=== PATIENT | female | born 1985 | race Caucasian/White ===

== ENCOUNTER 2017-12-15 13:29 | Observation (INO) ==
[2017-12-15 13:57] LABS: Basophils # 0.1 K/mm3 (0-0.2); Basophils % 0.3 % (0.1-2.0); Eosinophils # 0.2 K/mm3 (0.0-0.4); Eosinophils % 0.7 % (0.1-12.0); Hematocrit 39.4 % (37.0-47.0); Hemoglobin 12.6 g/dL (12.2-16.2); Lymphocytes % 4.4 K/mm3 (10-50); Mean Corpuscular HGB Conc 31.9 g/dL (31.8-35.4); Mean Corpuscular Hemoglobin 30.1 pg (27.0-31.2); Mean Corpuscular Volume 94.4 fl (81-99); Mean Platelet Volume 7.6 fl (7.4-10.4); Monocytes % 4.4 % (1.7-9.3); Neutrophils # 21.2 K/mm3 (1.8-7.8); Neutrophils % 90.3 % (37.0-80.0); Platelet Count 309 K/mm3 (142-424); Red Blood Count 4.18 M/mm3 (4.20-5.40); Red Cell Distribution Width 14.8 % (11.5-17.5); White Blood Count 23.4 K/mm3 (4.8-10.8)
--- NOTE | 2017-12-15 13:59 | Emergency Department Note ---
ED Disposition Clinical Impression: Hyperkalemia, Hypoglycemia Acute renal failure Qualifiers: Acute renal failure type: unspecified Qualified Code(s): N17.9 - Acute kidney failure, unspecified Disposition: Still a Patient Condition on Discharge: Fair - Critical Care Critical Care Time: No Attestation: On , the high probability of a clinically significant, sudden or life threatening deterioration of the following system(s) required my full and direct attention, intervention and personal management. The time I documented below is in addition to time spent performing reported procedures but includes the following listed in this critical care notation. Medical Decision Making - [place] Inquiry Pt receiving controlled substance: No Vital Signs: 12/15/17 13:31 12/15/17 14:21 12/15/17 15:07 Temperature 97.8 F Temperature Source Oral Pulse Rate Pulse Rate [Right Brachial] 108 H 118 H 102 H Respiratory Rate 18 20 16 Blood Pressure Blood Pressure [Right Arm] 81/50 98/65 103/67 Blood Pressure Mean [Right Arm] 60 76 79 Blood Pressure Source Blood Pressure Source [Right Arm] Automatic Cuff Automatic Cuff Blood Pressure Position Blood Pressure Position [Right Arm] Supine Sitting 02 Sat by Pulse Oximetry 97 97 97 Oxygen Delivery Method Room Air Room Air 12/15/17 15:52 12/15/17 17:05 12/15/17 17:52 Temperature 98.5 F Temperature Source Oral Pulse Rate Pulse Rate [Right Brachial] 61 114 H 112 H Respiratory Rate 20 22 20 Blood Pressure Blood Pressure [Right Arm] 105/58 118/77 121/81 Blood Pressure Mean [Right Arm] 73 90 94 Blood Pressure Source Blood Pressure Source [Right Arm] Automatic Cuff Automatic Cuff Automatic Cuff Blood Pressure Position Blood Pressure Position [Right Arm] Sitting Sitting Sitting 02 Sat by Pulse Oximetry 100 98 97 Oxygen Delivery Method Room Air Room Air 12/15/17 18:43 Temperature 98.9 F Temperature Source Oral Pulse Rate 72 Pulse Rate [Right Brachial] Respiratory Rate 16 Blood Pressure 114/70 Blood Pressure [Right Arm] Blood Pressure Mean [Right Arm] Blood Pressure Source Automatic Cuff Blood Pressure Source [Right Arm] Blood Pressure Position Sitting Blood Pressure Position [Right Arm] 02 Sat by Pulse Oximetry Oxygen Delivery Method Room Air - Lab Data Lab Results 12/15/17 13:24: POC Glucose 116 H 12/15/17 13:35: WBC 23.4 H*, RBC 4.18 L, Hgb 12.6, Hct 39.4, MCV 94.4, MCH 30.1 , MCHC 31.9, RDW 14.8, Plt Count 309, MPV 7.6, Neut % (Auto) 90.3 H, Lymph % ( Auto) 4.4 L, [place] % (Auto) 4.4, Eos % (Auto) 0.7, Baso % (Auto) 0.3, Neut # ( Auto) 21.2 H, Lymph # (Auto) 1.0, [place] # (Auto) 1.0, Eos # (Auto) 0.2, Baso # ( Auto) 0.1, Total Counted 100, Neutrophils % (Manual) 88 H, Lymphocytes % (Manual ) 8 L, Monocytes % (Manual) 4, Platelet Estimate Normal, RBC Morphology Normal 12/15/17 13:35: Sodium 139, Potassium 7.0 H*, Chloride 104, Carbon Dioxide 22, Anion Gap 20.0 H, BUN 33 H, Creatinine 2.63 H, Estimated Creat Clear 25, Estimated GFR 21 L, Est GFR ( Amer) 25 L, Glucose 103, Calcium 8.1 L, Total Bilirubin 0.6, AST 879 H*, ALT 869 H*, Alkaline Phosphatase 86, Total Protein 7.9, Albumin 3.9, Globulin 4.0 H, Albumin/Globulin Ratio 1.0 L 12/15/17 14:40: Total Creatine Kinase 412 H 12/15/17 14:40: Serum HCG, Qual Negative 12/15/17 14:40: Lactate 2.6 H 12/15/17 17:25: Urine Color Yellow, Urine Appearance Clear, Urine pH 6.0, Ur Specific [place] 1.025, Urine Protein 2+, Urine Glucose (UA) Negative, Urine Ketones Negative, Urine Blood 3+, Urine Nitrate Negative, Urine Bilirubin Negative, Urine Urobilinogen 0.2, Ur Leukocyte Esterase Negative, Urine RBC 10- 20, Urine WBC 3-5, Ur Squamous Epith Cells 20-50, Amorphous Sediment 2+, Urine Bacteria 1+, Hyaline Casts 3-5, Coarse Granular Casts 3-5 12/15/17 17:25: Urine Opiates Screen Negative, Urine Methadone Screen Negative, Ur Barbituates Screen Negative, Ur Phencyclidine Scrn Negative, Ur Amphetamines Screen Positive H, U Benzodiazepines Scrn Negative, Urine Cocaine Screen Negative, U Marijuana (THC) Screen Negative 12/15/17 17:39: Potassium 4.5 D Result diagrams: 12/15/17 13:35 12/15/17 17:39 Orders (Tests/Meds): ED MEDICATIONS Discontinued Medications Generic Name Dose Route Start Last Admin Trade Name Tyler PRN Reason Stop Dose Admin Dextrose 50 ml 12/15/17 14:25 12/15/17 15:39 Dextrose 50% 50ml Syringe IVP 12/15/17 14:26 50 ml ONCE ONE Administration Azithromycin 500 mg/ Sodium 250 mls @ 250 mls/hr 12/15/17 17:26 12/15/17 18: 36 Chloride IV 12/15/17 17:27 250 mls/hr ONCE ONE Administration Protocol Ceftriaxone Sodium 1 gm/ 50 mls @ 100 mls/hr 12/15/17 17:26 12/15/17 18:03 Sodium Chloride IV 12/15/17 17:55 100 mls/hr ONCE ONE Administration Protocol Insulin Human Regular 5 unit 12/15/17 14:25 12/15/17 15:39 Humulin R Insulin 100 Units/Ml 10ml Vial IVP 12/15/17 14:26 5 unit ONCE ONE Administration Sodium Bicarbonate 50 meq 12/15/17 14:25 12/15/17 15:39 Sodium Bicarbonate 8.4% 50ml Syringe IV 12/15/17 14:26 50 meq ONCE ONE Administration ORDERS Category Date Time Status CT chest wo con Stat Cat Scan 12/15/17 17:50 Taken Blood Culture Stat Micro 12/15/17 14:40 Received - CT Data CT Scan: Chest Time Received: 19:[address] Reviewed: Yes: I have viewed the radiologist's interpretation Findings Narrative: No pulmonary mass or infiltrate. Flocculent material throughout the esophagus, likely food material. - ECG Data Tracing #1 EKG interpreted by Elia Purcell MD: Rhythm: sinus tachycardia Rate: 107 Adger: normal Ectopy: none Conduction: normal ST Segment Changes: none T Wave Changes: none Q Waves: none No evidence of acute ischemia or injury - Physician Consults Physician Consulted: [place] Time: 17:27 Reason -: Pt condition Comment/Response: Prefers patient be transferred the higher level of care due to acute renal failure with hyperkalemia. Additional Consult: [place] Time: 18:23 Reason -: Admission Comment/Response: Agrees to admit the patient to the hospital. We discussed the patient's clinical information, including history, exam, laboratory and radiology results and ED course. Per hospital procedure, I will write temporary bridge inpatient orders on the patient. Specific orders requested by the admitting physician: Telemetry. Continue IV fluids, antibiotics. Repeat labs in the morning. - Reevaluation(s) Time: 17:00 Reevaluation #1: No complaints. Right thigh cramping/pain with movement has resolved. Medical Decision Narrative: Discussed with Dr. Lynch at [facility] emergency room, they are on diversion and cannot accept. Discussed with Dr. Abrams, hospitalist at [facility]. They have await the stem would not be able to accept her until tomorrow. Discussed again with Dr. Amaro. Since potassium is now down to 4.5 he is agreeable to admitting her here. 7:00 PM: CT chest does not show any infiltrate and no mass. Antibiotics will be stopped, recheck CBC in the morning. General Adult HPI - General Chief complaint: Hyper/Hypoglycemia Stated complaint: hypoglycemia Time Seen by Provider: 12/15/17 14:11 Mode of Arrival: EMS Limitations: No Limitations Description of Symptoms (Recalled from ER Triage Doc. by RN): HYPOGLTCEMIA - History of Present Illness HPI narrative: Brought in by ambulance. They were toned out because the patient was unresponsive. kick press setter police officers apparently gave her 6 mg of Narcan. She did not respond. They found her to have a blood sugar in the 20s and administered dextrose. She arrives here awake and alert. She does not recall what happened. She denies using any drugs, although she has a previous history of heroin abuse. Says that she remembers looking in the mirror and then does not remember what happened. She says that somebody told her she was only down for a few minutes, but it is unclear to me how she knows this. She says that she has not recently been ill except for a cough for a week or so. No fevers. No chest pain or shortness of breath. No vomiting or diarrhea. Currently she complains of a pain in her right thigh and buttock area that feels like muscle cramp when she moves her right leg. It does not hurt at rest. She denies any other pain. She does not know whether she fell. No headache or neck pain. States that she has a history of hypertension. Did not take her medication today. - Related Data Allergies Allergy/AdvReac Type Severity Reaction Status Date / Time codeine Allergy Verified 12/15/17 15:38 Penicillins Allergy Verified 12/15/17 15:38 [facility] History I have reviewed the patient's past medical history: Yes Comment: Hepatitis C from IV drug abuse, hypertension - Social History Educational Level: Completed High School Smoking Status: Current every day smoker Tobacco Type: cigarettes Alcohol Intake: never - Psychiatric History Expresses thoughts of harming self/others: None Suicide Plan Description: No Plan ROS Obtained: Yes All systems reviewed & no additional complaints - Constitutional Constitutional: Denies fever(s) - Eyes Eyes: Denies change in vision - ENT Ears, Nose, Mouth, and Throat: Reports nasal discharge, Denies sore throat - Cardiovascular Cardiovascular: Denies chest pain - Respiratory Respiratory: Yes cough, No dyspnea - Gastrointestinal Gastrointestingal: Denies: abdominal pain, diarrhea, vomiting - Musculoskeletal Musculoskeletal: Denies back pain, Denies neck pain - Neurologic Neurologic: Denies headache(s) Physical Exam - General General appearance: alert, in no apparent distress - Head Head exam: atraumatic, normocephalic, normal inspection - Eye Eye exam: Present: normal appearance, PERRL, EOMI - ENT ENT exam: Present: normal exam, normal oropharynx, mucous membranes moist, TM's normal bilaterally, normal external ear exam - Neck Neck exam: Present: normal inspection, full ROM, trachea midline. Absent: meningismus, lymphadenopathy - Chest Chest inspection: Present: normal inspection, symmetric chest wall rise. Absent : tenderness - Respiratory Respiratory exam: Present: normal lung sounds bilaterally. Absent: respiratory distress - Cardiovascular Cardiovascular exam: Present: regular rate, normal rhythm. Absent: JVD - Abdominal Exam Abdominal exam: Present: soft, normal bowel sounds. Absent: distention, tenderness, guarding - Extremities Exam Extremities exam: Present: normal inspection, normal capillary refill, other ( Tender right posterior thigh without ecchymosis or edema). Absent: calf tenderness - Back Exam Back exam: Present: normal inspection. Absent: tenderness - Neurological Exam Neurological exam: Present: alert, oriented X3, CN II-XII intact. Absent: motor sensory deficit - Psychiatric Psychiatric exam: Present: normal affect, normal mood - Skin Skin exam: Present: warm, dry, intact, normal color
[2017-12-15 14:05] LABS: Albumin Level 3.9 gm/dL (3.4-5.0); Bilirubin,Total 0.6 mg/dL (0.2-1.0); Calcium 8.1 mg/dL (8.5-10.1); Total Protein,Serum 7.9 gm/dL (6.4-8.2)
[2017-12-15 14:27] LABS: Lymphocytes % 8 % (10-50); Monocytes % 4 % (2-9); Neutrophils % 88 % (42-76); Total Cells Counted 100
[2017-12-15 14:28] LABS: RBC Morphology Normal
[2017-12-15 17:28] LABS: Microscopic, Urine URINE MICROSCOPIC (MICROSCOPIC)
[2017-12-15 17:31] LABS: Appearance,Urine CLEAR (Clear); Bilirubin,Urine Negative (Negative); Blood, Urine 3+ (Negative); Color,Urine YELLOW (Yellow); Glucose,Urine (UA) Negative (Negative); Ketones,Urine Negative (Negative); Leukocyte Esterase,Urine Negative (Negative); Protein,Urine 2+ (Negative); Specific Gravity, Urine 1.025 (1.005-1.030); Urobilinogen,Urine 0.2 EU/dl (0.2)
[2017-12-15 17:43] LABS: Amphetamine/Metha Screen,Urine Positive ng/mL (<1000); Barbiturates Screen,Urine Negative ng/mL (<200); Benzodiazepines Screen,Urine Negative ng/mL (<200); Cannabinoid Screen,Urine Negative ng/mL (<50); Cocaine Screen,Urine Negative ng/mL (<300); Methadone Screen,Urine Negative ng/mL (<300); Opiate Screen,Urine Negative ng/mL (<300); Phencyclidine Screen,Urine Negative ng/mL (<25)
[2017-12-15 17:47] LABS: Amorphous Sediment,Urine 2+ /lpf; Bacteria,Urine 1+ /lpf; Squamous Epithelial Cell,Urine 20-50 #/hpf (0-5)
--- NOTE | 2017-12-15 21:48 | History & Physical Report ---
*Admission Date: 12/15/17 *Chief complaint: Syncope *History of present illness: 32-year-old white female with a history of heroin and meth use who presented to the emergency department with syncope and unresponsiveness. She arrived in the emergency department under EMS supervision after police had been called to a home and found her unresponsive, and Narcan was administered with no response. When EMS arrived glucose is 20, she was given dextrose intravenously and by the time she came to the emergency department she was awake and alert. She tells me that the last thing she remembers was being at her house in [facility] this morning and eating a bell egg and cheese sandwich. She then states that the next thing she remembers is waking up in the ambulance. However, her story to the ER physician was slightly different. She denied drug use in the ER but when I asked her about her amphetamine positivity in her urine drug screen she reported that she "snorted meth 2 days ago." She denies a history of seizure disorder, diabetes or previous episodes of hypoglycemia. [facility] History I have reviewed the patient's past medical history: Yes Medical History: Reports:: Hypertension Denies:: Cancer, Diabetes Mellitus Type 1, Diabetes Mellitus Type 2, MRSA Comment: Reports a 7 week hospitalization in [place], [place] secondary to infected IUD with multiple surgical procedures to clean out abscesses that and in September of this spring. She has not followed up with [facility] as scheduled. Other Surgeries: Yes: Other Amputation: No Fractures: No - *Social History Educational Level: Attended College Smoking Status: Current every day smoker Tobacco Type: cigarettes # Packs/Day (cigarettes): 1 Alcohol Intake: never Substance Use Type: methamphetamine Last Used Substance: days (ago) Occupational Status: unemployed Housing: house Household Members: family - Psychiatric History Expresses thoughts of harming self/others: None Suicide Plan Description: No Plan *Family Hx:: Cancer, Coronary Artery Disease, Diabetes, Heart Attack, Hyperlipidemia, Hypertension, Stroke, Thyroid Disorder Comment: Seizure disorder in sister and nephew Review of Systems - Review of Systems Review of systems:: pertinent systems reviewed and negative unless documented below - Constitutional Reports headache(s), Denies anorexia, Denies body ache(s), Denies chills, Denies daytime sleepiness - Eyes Denies blind spots, Denies blurry vision, Denies change in vision - ENT Denies abnormal hearing, Denies bleeding gums - *Cardiovascular Denies chest pain, Denies chest pain at rest, Denies excessive sweating, Denies shortness of breath, Denies irregular heart rhythm, Denies leg swelling - *Respiratory Denies change in phlegm color, Denies chest congestion, Denies cough - *Gastrointestinal Denies abdominal pain, Denies coffee ground vomit, Denies constipation, Denies cramping - *Genitourinary Reports abnormal periods Comments: See past medical history regarding her recent [facility] surgery. She recently had a normal. - *Musculoskeletal Denies abnormal walking, Denies joint pain - *Neurologic Reports confusion, Reports dizziness, Denies headache(s), Denies loss of vision , Denies memory loss, Denies numbness Meds Allergies Allergy/AdvReac Type Severity Reaction Status Date / Time codeine Allergy Verified 12/15/17 15:38 Penicillins Allergy Verified 12/15/17 15:38 Exam Vital signs and Labs for Last 24 Hours: Temp Pulse Resp BP Pulse Ox 98.6 F 114 H 18 93/57 96 12/15/17 19:39 12/15/17 19:39 12/15/17 19:39 12/15/17 19:39 12/15/17 19:39 Laboratory Results - last 24 hr 12/15/17 13:24: POC Glucose 116 H 12/15/17 13:35: WBC 23.4 H*, RBC 4.18 L, Hgb 12.6, Hct 39.4, MCV 94.4, MCH 30.1 , MCHC 31.9, RDW 14.8, Plt Count 309, MPV 7.6, Neut % (Auto) 90.3 H, Lymph % ( Auto) 4.4 L, [place] % (Auto) 4.4, Eos % (Auto) 0.7, Baso % (Auto) 0.3, Neut # ( Auto) 21.2 H, Lymph # (Auto) 1.0, [place] # (Auto) 1.0, Eos # (Auto) 0.2, Baso # ( Auto) 0.1, Total Counted 100, Neutrophils % (Manual) 88 H, Lymphocytes % (Manual ) 8 L, Monocytes % (Manual) 4, Platelet Estimate Normal, RBC Morphology Normal 12/15/17 13:35: Sodium 139, Potassium 7.0 H*, Chloride 104, Carbon Dioxide 22, Anion Gap 20.0 H, BUN 33 H, Creatinine 2.63 H, Estimated Creat Clear 25, Estimated GFR 21 L, Est GFR ( Amer) 25 L, Glucose 103, Calcium 8.1 L, Total Bilirubin 0.6, AST 879 H*, ALT 869 H*, Alkaline Phosphatase 86, Total Protein 7.9, Albumin 3.9, Globulin 4.0 H, Albumin/Globulin Ratio 1.0 L 12/15/17 14:40: Total Creatine Kinase 412 H 12/15/17 14:40: Serum HCG, Qual Negative 12/15/17 14:40: Lactate 2.6 H 12/15/17 17:25: Urine Color Yellow, Urine Appearance Clear, Urine pH 6.0, Ur Specific [place] 1.025, Urine Protein 2+, Urine Glucose (UA) Negative, Urine Ketones Negative, Urine Blood 3+, Urine Nitrate Negative, Urine Bilirubin Negative, Urine Urobilinogen 0.2, Ur Leukocyte Esterase Negative, Urine RBC 10- 20, Urine WBC 3-5, Ur Squamous Epith Cells 20-50, Amorphous Sediment 2+, Urine Bacteria 1+, Hyaline Casts 3-5, Coarse Granular Casts 3-5 12/15/17 17:25: Urine Opiates Screen Negative, Urine Methadone Screen Negative, Ur Barbituates Screen Negative, Ur Phencyclidine Scrn Negative, Ur Amphetamines Screen Positive H, U Benzodiazepines Scrn Negative, Urine Cocaine Screen Negative, U Marijuana (THC) Screen Negative 12/15/17 17:39: Potassium 4.5 D 12/15/17 18:59: Lactate 2.7 H I & O for Last 24 hours: Intake & Output 12/13/17 12/14/17 12/15/17 12/16/17 11:59 11:59 11:59 11:59 Weight 113 lb 8 oz Narrative: Patient is currently pleasant, talkative. Very incongruous history of present illness. Oropharynx is clear, no lesions. Moist. Nasal passages are clear. Otherwise ENT exam unremarkable. Lungs are clear, heart rate minimally tachycardic as expected from her current situation but no murmurs or gallops. Abdomen is soft, nontender. Extremities have some scattered merino consistent with insect bites but no edema or clubbing. I can see no visible track merino. No joints are swollen or tender. H&P: Result - Labs Labs: Short CBC 12/15/17 Range/Units 13:35 WBC 23.4 H* (4.8-10.8) K/mm3 Hgb 12.6 (12.2-16.2) g/dL Hct 39.4 (37.0-47.0) % Plt Count 309 (142-424) K/mm3 BMP 12/15/17 12/15/17 13:35 17:39 Sodium 139 Potassium 7.0 H* 4.5 D Chloride 104 Carbon Dioxide 22 BUN 33 H Creatinine 2.63 H Glucose 103 Calcium 8.1 L Cardiac Enzymes 12/15/17 Range/Units 14:40 Total Creatine Kinase 412 H (26-192) U/L Liver Function 12/15/17 Range/Units 13:35 Total Bilirubin 0.6 (0.2-1.0) mg/dL AST 879 H* (15-37) U/L ALT 869 H* (12-78) U/L Alkaline Phosphatase 86 (46-116) U/L Albumin 3.9 (3.4-5.0) gm/dL Urine 12/15/17 Range/Units 17:25 Urine Color Yellow (Yellow) Urine Appearance Clear (Clear) Urine pH 6.0 (5.0-8.5) Ur Specific [place] 1.025 (1.005-1.030) Urine Protein 2+ (Negative) Urine Glucose (UA) Negative (Negative) Assessment and Plan (1) Methamphetamine use Current visit: Yes Status: Acute Category: Medical Code(s): F15.10 - Other stimulant abuse, uncomplicated This is the most likely etiology for the syncopal episode, would also explain possible lack of oral intake, dehydration and her elevated kidney function and CPK levels if she has been down for longer than she admits. IV fluids, follow labs as noted. (2) Syncope Current visit: Yes Status: Acute Category: Medical Code(s): R55 - Syncope and collapse Probably from methamphetamine use. EEG. Check thyroid panel. (3) Lung mass Current visit: Yes Status: Acute Category: Medical Code(s): R91.8 - Other nonspecific abnormal finding of lung field Chest x-ray report noted. Heavy tobacco user. Check CT scan report (4) Acute renal failure Current visit: Yes Status: Acute Qualifiers: Acute renal failure type: unspecified Qualified Code(s): N17.9 - Acute kidney failure, unspecified Category: Medical Code(s): N17.9 - Acute kidney failure, unspecified Probably from dehydration/mild rhabdomyolysis. Follow labs tomorrow. Hyperkalemia is improving. (5) Hyperkalemia Current visit: Yes Status: Acute Category: Medical Code(s): E87.5 - Hyperkalemia (6) Hypoglycemia Current visit: Yes Status: Acute Category: Medical Code(s): E16.2 - Hypoglycemia, unspecified
[2017-12-15 22:23] LABS: Free Thyroxine Index 3.4 ug/dL (5.93-13.13); T4 (Thyroxine) 9.6 ug/dl (4.7-13.3); Thyroid Stimulating Hormone 1.13 uIU/ml (0.358-3.740)
[2017-12-16 07:18] LABS: Calcium 7.6 mg/dL (8.5-10.1)
--- NOTE | 2017-12-16 07:18 | Pharmacy Consult Notes ---
[facility] Pharmacy VTE Monitoring - Patient Demographics Admission date: 12/15/17 Report Date: 12/16/17 Time: 07:18 Allergies/Adverse Reactions: Patient Allergies codeine Allergy (Verified 12/15/17 15:38) Penicillins Allergy (Verified 12/15/17 15:38) Height: 1.52 m Weight: 51.483 kg Patient Problems: Current Active Problems Acute renal failure (Acute) Hyperkalemia (Acute) Hypoglycemia (Acute) Methamphetamine use (Acute) Syncope (Acute) Lung mass (Acute) - VTE Risk Labs: VTE Related Lab Results Hgb 12.6 g/dL (12.2-16.2) 12/15/17 13:35 Hct 39.4 % (37.0-47.0) 12/15/17 13:35 Plt Count 309 K/mm3 (142-424) 12/15/17 13:35 BUN 33 mg/dL (7-18) H 12/15/17 13:35 Creatinine 2.63 mg/dL (0.55-1.02) H 12/15/17 13:35 Estimated Creat Clear 25 mL/min (0-300) 12/15/17 13:35 VTE Risk Level: Very Low Risk - Prophylaxis VTE Prophylaxis Ordered?: Yes Types of VTE Prophylaxis: TEDS Knee High Location of Applied Device: Bilateral Lower Extremeties - VTE Diagnosis Confirmed Treatment or plan recommended: Continue Current Treatment
[2017-12-16 07:52] VITALS: BP 106/60
[2017-12-16 08:16] LABS: Basophils % 0.1 % (0.1-2.0); Eosinophils # 0.1 K/mm3 (0.0-0.4); Eosinophils % 1.1 % (0.1-12.0); Lymphocytes # 2.2 K/mm3 (0.7-4.5); Mean Corpuscular HGB Conc 32.5 g/dL (31.8-35.4); Mean Corpuscular Hemoglobin 30.1 pg (27.0-31.2); Mean Corpuscular Volume 92.4 fl (81-99); Mean Platelet Volume 7.5 fl (7.4-10.4); Monocytes # 0.5 K/mm3 (0.1-1.0); Monocytes % 5.4 % (1.7-9.3); Neutrophils # 6.5 K/mm3 (1.8-7.8); Neutrophils % 69.5 % (37.0-80.0); Red Blood Count 3.66 M/mm3 (4.20-5.40); Red Cell Distribution Width 14.9 % (11.5-17.5); White Blood Count 9.3 K/mm3 (4.8-10.8)
[2017-12-16 08:17] LABS: Platelet Count 179 K/mm3 (142-424)
[2017-12-16 08:24] LABS: Albumin Level 3.2 gm/dL (3.4-5.0); Bilirubin,Direct 0.1 mg/dL (0.0-0.2); Bilirubin,Indirect 0.3 mg/dL (0.0-0.9); Bilirubin,Total 0.4 mg/dL (0.2-1.0); Total Protein,Serum 5.9 gm/dL (6.4-8.2)
[2017-12-16 08:39] LABS: Hemoglobin 11.1 g/dL (12.2-16.2)
--- NOTE | 2017-12-16 09:23 | Progress Note ---
Internal Medicine - PN: Subj *Date: 12/16/17 *Time: :18 Interval history: Feels better.... good po intake. No pain. No syncope. Cough is better. Exam Vital signs and Labs for Last 24 Hours: Temp Pulse Resp BP Pulse Ox 97.8 F 84 16 106/60 93 L 12/16/17 07:52 12/16/17 07:52 12/16/17 07:52 12/16/17 07:52 12/16/17 08:00 Laboratory Results - last 24 hr 12/15/17 13:24: POC Glucose 116 H 12/15/17 13:35: WBC 23.4 H*, RBC 4.18 L, Hgb 12.6, Hct 39.4, MCV 94.4, MCH 30.1 , MCHC 31.9, RDW 14.8, Plt Count 309, MPV 7.6, Neut % (Auto) 90.3 H, Lymph % ( Auto) 4.4 L, Miller % (Auto) 4.4, Eos % (Auto) 0.7, Baso % (Auto) 0.3, Neut # ( Auto) 21.2 H, Lymph # (Auto) 1.0, Miller # (Auto) 1.0, Eos # (Auto) 0.2, Baso # ( Auto) 0.1, Total Counted 100, Neutrophils % (Manual) 88 H, Lymphocytes % (Manual ) 8 L, Monocytes % (Manual) 4, Platelet Estimate Normal, RBC Morphology Normal 12/15/17 13:35: Sodium 139, Potassium 7.0 H*, Chloride 104, Carbon Dioxide 22, Anion Gap 20.0 H, BUN 33 H, Creatinine 2.63 H, Estimated Creat Clear 25, Estimated GFR 21 L, Est GFR ( Amer) 25 L, Glucose 103, Calcium 8.1 L, Total Bilirubin 0.6, AST 879 H*, ALT 869 H*, Alkaline Phosphatase 86, Total Protein 7.9, Albumin 3.9, Globulin 4.0 H, Albumin/Globulin Ratio 1.0 L 12/15/17 14:40: Total Creatine Kinase 412 H 12/15/17 14:40: Serum HCG, Qual Negative 12/15/17 14:40: Lactate 2.6 H 12/15/17 17:25: Urine Color Yellow, Urine Appearance Clear, Urine pH 6.0, Ur Specific [place] 1.025, Urine Protein 2+, Urine Glucose (UA) Negative, Urine Ketones Negative, Urine Blood 3+, Urine Nitrate Negative, Urine Bilirubin Negative, Urine Urobilinogen 0.2, Ur Leukocyte Esterase Negative, Urine RBC 10- 20, Urine WBC 3-5, Ur Squamous Epith Cells 20-50, Amorphous Sediment 2+, Urine Bacteria 1+, Hyaline Casts 3-5, Coarse Granular Casts 3-5 12/15/17 17:25: Urine Opiates Screen Negative, Urine Methadone Screen Negative, Ur Barbituates Screen Negative, Ur Phencyclidine Scrn Negative, Ur Amphetamines Screen Positive H, U Benzodiazepines Scrn Negative, Urine Cocaine Screen Negative, U Marijuana (THC) Screen Negative 12/15/17 17:39: Potassium 4.5 D 12/15/17 18:59: Lactate 2.7 H 12/15/17 21:29: Lactate 1.9 12/15/17 21:29: TSH 1.13, Free T4 Index 3.4 L, Thyroxine (T4) 9.6, T3 Uptake 35 12/16/17 01:47: POC Glucose 99 12/16/17 06:39: Sodium 140, Potassium 4.0, Chloride 110 H, Carbon Dioxide 25, Anion Gap 9.0, BUN 27 H, Creatinine 0.99 D, Estimated Creat Clear 66, Estimated GFR 65, Est GFR ( Amer) 78 D, Glucose 81 D, Calcium 7.6 L 12/16/17 06:39: Total Bilirubin 0.4, Direct Bilirubin 0.1, Indirect Bilirubin 0.3, AST 4176 H* D, ALT 2890 H*, Alkaline Phosphatase 84, Total Protein 5.9 L D , Albumin 3.2 L D 12/16/17 07:23: WBC 9.3 D, RBC 3.66 L, Hgb 11.1 L D, Hct 34.0 L, MCV 92.4, MCH 30.1, MCHC 32.5, RDW 14.9, Plt Count 179 D, MPV 7.5, Neut % (Auto) 69.5, Lymph % (Auto) 24.0, Miller % (Auto) 5.4, Eos % (Auto) 1.1, Baso % (Auto) 0.1, Neut # ( Auto) 6.5, Lymph # (Auto) 2.2, Miller # (Auto) 0.5, Eos # (Auto) 0.1, Baso # (Auto ) 0.0 I & O for Last 24 hours: Intake & Output 12/13/17 12/14/17 12/15/17 12/16/17 11:59 11:59 11:59 11:59 Intake Total 2051 Output Total 200 / 200 Balance 1851 Weight 113 lb 8 oz - Constitutional no acute distress - *Routine HEENT Exam Head: Present: normocephalic Eye: Present: EOMI. Absent: scleral injection ENT: Present: mucous membranes moist - *Routine Neck Exam Present: supple, full ROM. Absent: lymphadenopathy - Routine Chest/Breast/Axilla Exam Chest wall: Absent: tenderness - *Routine Respiratory Exam Absent: accessory muscle use, decreased breath sounds - *Routine Cardiovascular Exam Present: RRR, Normal S1, Normal S2 - *Routine Abdominal Exam Present: soft, normoactive bowel sounds. Absent: tenderness, organomegaly Assessment and Plan (1) Methamphetamine use Current visit: Yes Status: Acute Category: Medical Code(s): F15.10 - Other stimulant abuse, uncomplicated (2) Syncope Current visit: Yes Status: Acute Category: Medical Code(s): R55 - Syncope and collapse (3) Lung mass Current visit: Yes Status: Acute Category: Medical Code(s): R91.8 - Other nonspecific abnormal finding of lung field (4) Acute renal failure Current visit: Yes Status: Acute Qualifiers: Acute renal failure type: unspecified Qualified Code(s): N17.9 - Acute kidney failure, unspecified Category: Medical Code(s): N17.9 - Acute kidney failure, unspecified (5) Hyperkalemia Current visit: Yes Status: Acute Category: Medical Code(s): E87.5 - Hyperkalemia (6) Hypoglycemia Current visit: Yes Status: Acute Category: Medical Code(s): E16.2 - Hypoglycemia, unspecified (7) Elevated LFTs Current visit: Yes Status: Acute Category: Medical Code(s): R94.5 - Abnormal results of liver function studies Overall CAP and MS improved. LFTs this am markedly elevated. Check US, PT, hep studies. ? from prolonged downtime? Check CPK. If trending down in am could d/c home.
[2017-12-17 09:20] LABS: Hepatitis B Core Antibody IgM Negative (Negative); Hepatitis B Surface Antigen Negative (Negative)
[2017-12-18 15:21] LABS: Hepatitis C Antibody >11.0 s/co ratio (0.0-0.9)
--- NOTE | 2017-12-28 08:33 | Discharge Summary ---
General - General Admission date:: 12/15/17 Discharge date: 12/16/17 HPI HPI: 32-year-old white female with a history of heroin and meth use who presented to the emergency department with syncope and unresponsiveness. She arrived in the emergency department under EMS supervision after police had been called to a home and found her unresponsive, and Narcan was administered with no response. When EMS arrived glucose is 20, she was given dextrose intravenously and by the time she came to the emergency department she was awake and alert. She tells me that the last thing she remembers was being at her house in [facility] this morning and eating a bell egg and cheese sandwich. She then states that the next thing she remembers is waking up in the ambulance. However, her story to the ER physician was slightly different. She denied drug use in the ER but when I asked her about her amphetamine positivity in her urine drug screen she reported that she "snorted meth 2 days ago." She denies a history of seizure disorder, diabetes or previous episodes of hypoglycemia. Hospital Course Hospital Course: Patient was admitted, please see my H&P for details of her incredibly questionable history of presentation. Patient had methamphetamine in her urine drug screen. She reports that she does do meth after asking about this. She had no further episodes of neurologic status decline. The morning of December 16 she was on to have significantly elevated LFT -- ultrasonography and further blood work was ordered to evaluate this significant issue but patient left AMA ostensibly to "go see her mom." As result no prescriptions, further follow-up or workup was able to be done because of her LFT issues. Please see nursing documentation for details. Objective Vital signs: Temp Pulse Resp BP Pulse Ox 97.8 F 90 16 106/60 93 L 12/16/17 07:52 12/16/17 08:00 12/16/17 07:52 12/16/17 07:52 12/16/17 08:00 Narrative: Discharge exam not done because of her AMA status DS: Diagnosis - Discharge Diagnosis (1) Methamphetamine use Status: Acute (2) Syncope Status: Acute (3) Lung mass Status: Acute (4) Acute renal failure Status: Acute (5) Hyperkalemia Status: Acute (6) Hypoglycemia Status: Acute (7) Elevated LFTs Status: Acute Discharge Plan - Patient Discharge Instructions ACTIVITY: Other DIET: other - Follow up Plan Disposition: Left Against Medical Advice Home Medications: Home Medications Medication Instructions Recorded Confirmed Type No Known Home Medications 12/15/17 12/15/17 History Prescriptions/Medication Reconciliation: No Action No Known Home Medications
== END 2017-12-16 10:57 | disposition left against medical advice (07) ==
LOC: ER 13:29 → 2ND 13:29
PROVIDERS: ADMIT Internal Medicine Adolescent Medicine; ATTEND Internal Medicine Adolescent Medicine